=== PATIENT | male | born 1945 | race Two or more races ===

== ENCOUNTER 2020-02-28 11:03 | Emergency (ER) | payer OTHER ==
[2020-02-28 11:09] VITALS: BP 133/70; PULSE 75; TEMP 99.7; BMI 22.3
--- NOTE | 2020-02-28 11:27 | PDOC ---
History of Present Illness - General Chief Complaint: Sore Throat Stated Complaint: SORE THROAT Time Seen by Provider: 02/28/20 11:10 History Source: Patient Exam Limitations: Clinical Condition - History of Present Illness Initial Comments: 02/28/20 11:22 Patient with past medical history of hypertension presented with complaint of sore throat, white patches in the throat and fever since yesterday. Patient reported had a fever of 101 F last night. Patient reports testing positive for COVID early September which he has improved. Denies cough, shortness of breath, chest pain, palpitation, dizziness, headache, nausea, vomiting, weakness. Denies any other symptoms. Report taking Tylenol for fever. Is this a multiple visit Asthma Patient?: No Timing/Duration: 24 hours Past History - Medical History Allergies/Adverse Reactions: Allergies Allergy/AdvReac Type Severity Reaction Status Date / Time No Known Allergies Allergy Verified 02/28/20 11:06 Home Medications: Ambulatory Orders Amox-Tr/K Cl [Augmentin - 875Mg Tablet] 1 tab PO BID #14 tablet 02/28/20 COPD: No - Psycho-Social/Smoking History Smoking History: Never smoked - Substance Abuse Hx (Audit-C & DAST Scrn) How often the patient has a drink containing alcohol: Never Score: In Men: 4 or > Positive; In Women: 3 or > Positive: 0 Screen Result (Pos requires Nsg. Audit-10AR): Negative Review of Systems - Review of Systems Able to Perform ROS?: Yes Is the patient limited Mongolian proficient: No Constitutional: Yes: Fever. No: Chills, Malaise HEENTM: Yes: Symptoms Reported, See HPI, Throat Pain. No: Eye Pain, Blurred Vision, Tearing, Recent change in vision, Double Vision, Cataracts, Ear Pain, Ocular Prothesis, Ear Discharge, Nose Pain, Nose Congestion, Tinnitus, Nose Bleeding, Hearing Loss, Throat Swelling, Mouth Pain, Dental Problems, Difficulty Swallowing, Mouth Swelling, Other Respiratory: No: Symptoms reported, See HPI, Cough, Orthopnea, Shortness of Breath, SOB with Exertion, SOB at Rest, Stridor, Wheezing, Productive cough, Hemoptysis, Other Cardiac (ROS): No: Symptoms Reported, See HPI, Chest Pain, Edema, Irregular Heart Rate, Lightheadedness, Palpitations, Syncope, Chest Tightness, Other ABD/GI: No: Symptoms Reported, Nausea, Vomiting Integumentary: No: Symptoms Reported Neurological: No: Symptoms reported All Other Systems: Reviewed and Negative *Physical Exam - Vital Signs Last Vital Signs Temp Pulse Resp BP Pulse Ox 99.7 F H 75 8 L 133/70 98 02/28/20 11:07 02/28/20 11:07 02/28/20 11:07 02/28/20 11:07 02/28/20 11:07 - Physical Exam 02/28/20 11:25 GENERAL: Well developed, well nourished. Awake and alert. No acute distress. HEENT: Mild pharyngeal erythema with mild white exudates. No evidence of pharyngeal abscess or peritonsillar abscess. Normocephalic, atraumatic. PERRLA, EOMI. No conjunctival pallor. Sclera are non-icteric. Moist mucous membranes. NECK: Supple. Full ROM. CARDIOVASCULAR: Regular rate and rhythm. No murmurs, rubs, or gallops. Distal pulses are 2+ and symmetric. PULMONARY: No evidence of respiratory distress. Lungs clear to auscultation bilaterally. No wheezing, rales or rhonchi. ABDOMINAL: Soft. Non-tender. Non-distended. No rebound or guarding. No organomegaly. Normoactive bowel sounds. MUSCULOSKELETAL Normal range of motion at all joints. SKIN: Warm and dry. Normal capillary refill. No rashes. No jaundice. NEUROLOGICAL: Alert, awake, appropriate. Gait is normal without ataxia. PSYCHIATRIC: Cooperative. Good eye contact. Appropriate mood General Appearance: Yes: Nourished, Appropriately Dressed. No: Apparent Distress Medical Decision Making - Medical Decision Making 02/28/20 11:23 Patient with past medical history of hypertension presented with complaint of sore throat, white patches in the throat and fever since yesterday. Patient reported had a fever of 101 F last night. Patient reports testing positive for COVID early September which he has improved. Denies cough, shortness of breath, chest pain, palpitation, dizziness, headache, nausea, vomiting, weakness. Denies any other symptoms. Report taking Tylenol for fever. Exam significant for mild pharyngeal erythema with white exudates otherwise unremarkable exam. Lungs clear to auscultation bilateral and normal cardio exam. Patient afebrile. Patient stable for treatment on Augmentin for pharyngitis with advised to gargle with salt water and increase fluid intake with PCP follow-up Discharge - Discharge Information Problems reviewed: Yes Clinical Impression/Diagnosis: Pharyngitis Qualifiers: Pharyngitis/tonsillitis etiology: unspecified etiology Qualified Code(s): J02.9 - Acute pharyngitis, unspecified Condition: Stable Disposition: HOME - Admission No - Additional Discharge Information Prescriptions: Amox-Tr/K Cl [Augmentin - 875Mg Tablet] 1 tab PO BID #14 tablet - Follow up/Referral Referrals: Ajnum Youssef MD [Staff Physician] - - Patient Discharge Instructions Patient Printed Discharge Instructions: DI for Pharyngitis/Tonsillopharyngitis -- Adult Additional Instructions: Take prescribed antibiotics and finish it. Gargle with salt water as needed for throat pain. Follow-up referred ENT if symptoms persist for more than 5 days [place] los antibiticos recetados y termnelos. Kaylah grgaras con agua salada segn sea necesario para el dolor de garganta. ORL referido de seguimiento si los sntomas persisten gin ms de 5 pat - Post Discharge Activity
== END 2020-02-28 12:06 | disposition home or self-care (01) ==
LOC: JERFT 11:03
DX: J02.9 Acute pharyngitis, unspecified (principal)
CPT/HCPCS: 99282-25